=== PATIENT | male | born 1990 | race Caucasian/White ===

== ENCOUNTER 2016-07-01 23:59 | Emergency (ER) | payer OTHER ==
--- NOTE | ~2016-07-01 | CR72 ---
[facility] A Service of [facility] RADIOLOGY TEXT RESULTS PATIENT: LISET HALL LOCATION: [facility] : 91 UNIT #: [id number] AGE: [address]: Yane Goldberg MD SEX: M ORDER DR: [id number] [facility] [address] [place], [place] [address] [id number] MR#: [id number] Acc #: [id number] NAME: LISET HALL : 1990 SEX: M STUDY DATE/TIME: 07/01/2016 22:19 UNIT: [facility] ROOM: STUDY DESCRIPTION: CR Chest Single View Portable Attending Physician: Yane Goldberg M.D. Ordering Physician: Yane Goldberg M.D. Primary Care Physician: No Primary Care Physician MEDICAL IMAGING REPORT This report is preliminary unless electronic signature is present EXAM Portable chest HISTORY Fever, cough, weakness since yesterday. FINDINGS A single AP portable view of the chest shows both lungs to be clear. The heart is normal in size. The mediastinal contour is normal. No significant bone abnormalities are seen. IMPRESSION Normal portable chest. Dictated by... Ruddy Lomeli M.D. THIS IS AN ELECTRONICALLY VERIFIED REPORT Ruddy Lomeli M.D. at 07/02/2016 5:48 AM AMBROSE/phi TD: 07/02/2016 05:09 JOB #: [id number] MEDICAL IMAGING REPORT Page 1 of 1 COPY
[2016-07-01 23:29] LABS: URINE SOURCE CLEAN CATCH
[2016-07-01 23:38] LABS: BASOPHIL% 0.7 % (0-2.5); HEMATOCRIT 48.9 % (38.0-50.0); HEMOGLOBIN 16.6 gm/dL (13.0-16.0); LYMPHOCYTE# 0.6 X10e3 (1.0-3.5); LYMPHOCYTE% 20.4 % (17.0-45.0); MEAN CELL VOLUME 89.5 FL (83-96); MEAN CORPUSCULAR HEMOGLOBIN 30.4 PG (28-34); MEAN PLATELET VOLUME 9.2 FL (6.5-11.5); MONOCYTE# 0.2 X10e3 (0-1.0); MONOCYTE% 6.5 % (3.0-12.0); NEUTROPHIL# 2.2 X10e3 (1.5-7.1); NEUTROPHIL% 72.4 % (40-75); PLATELET COUNT 101 X10e3 (140-420); RED BLOOD COUNT 5.46 X10e (3.90-5.60); URINE APPEARANCE CLEAR; URINE BLOOD NEG (NEG); URINE COLOR DK YELLOW; URINE GLUCOSE NEG (NEG); URINE KETONE TRACE (NEG); URINE LEUKOCYTE ESTERASE TRACE (NEG); URINE NITRATE NEG (NEG); URINE PH 5.5 (5-8); URINE PROTEIN 2+ (NEG); URINE SPECIFIC GRAVITY 1.044 (1.003-1.035); WHITE BLOOD COUNT 3.1 X10e3 (4.0-10.5)
[2016-07-01 23:40] LABS: DIFF IND NO; URINE BACTERIA AUWI NEG (NEGATIVE); URINE SQUAMOUS EPITHELIAL CELL NONE SEEN /[HPF]
[2016-07-01 23:41] LABS: CULTURE INDICATED? NO; URINE BILIRUBIN POS (NEG)
[2016-07-01 23:49] LABS: INFLUENZA A NEG (NEG); INFLUENZA B NEG (NEG)
[2016-07-01 23:58] LABS: BUN/CREATININE RATIO 13.33; CALCIUM SERUM 8.6 mg/dL (8.4-10.2); CREATININE SERUM 0.9 mg/dL (0.6-1.4); GLOM FILT RATE Estimated 118.3 mL/min (>60); POTASSIUM 3.1 mmol/L (3.5-5.1)
[~2016-07-01 23:59] MED LIST: FLEXERIL10 MG PO; VOLTAREN75 MG PO
== END 2016-07-02 02:45 | disposition home or self-care (01) ==
LOC: CED 23:59
PROVIDERS: Emergency Medicine
DX: J11.1 Influenza due to unidentified influenza virus with other respiratory manifestations (principal); E11.9 Type 2 diabetes mellitus without complications; J45.909 Unspecified asthma, uncomplicated; Z88.0 Allergy status to penicillin
CPT/HCPCS: 36415; 71010; 80048; 81003; 85025; 87651; 87804; 94640; 96360; 99284

== ENCOUNTER 2016-07-04 21:16 | Observation (INO) | payer OTHER ==
--- NOTE | ~2016-07-04 | BMI ---
[facility] Nutrition Therapy DATE: 07/05/16 Patient: LISET HALL Physician: THAO Address: [address] Room/Bed: [address] [place] [address], Zip: [place] [address] Admit Date: 07/05/16 Date of : [birth year] Height: 5 11 Weight: 295 134 HIGH BMI NOTE: DX: 26 yo male admitted for fever of unknown origin ANTHROPOMETRICS: Ht: 5'11" Wt: 134.1 kg (295#) BMI: 41.2 DIET: Clear liquids INTERVENTION: 1. Restricted diet RECOMMENDATIONS: 1. Once mediacally feasible, advance diet as tolerated to healthy heart to promote gradual weight loss towards healthy BMI. RD will follow hospital course. Respectfully, Rosalinda Rodríguez, Clam Shucker Adam Sims MS, RD, LD [employer] [facility] cc: client file
--- NOTE | ~2016-07-04 | DS ---
Unit #: [id number] #: [id number] Patient: LISET HALL [id number] [address] [address] [id number] I MR#: [id number] NAME: LISET HALL ROOM: 239 Age: 26 Sex: M Admission Date: 07/05/2016 : 1990 Discharge Date: 07/06/2016 Attending Physician: Israel Peres M.D. Primary Care Physician: No Primary Care Physician DISCHARGE SUMMARY FINAL DIAGNOSES 1. Neutropenia with fever, likely viral illness. 2. Hypokalemia. 3. Tobacco use. CONSULTS Dr. Vences - Hematology. HOSPITAL COURSE 26-year-old male who was admitted for what looked like fever with nausea and vomiting, was found to be neutropenic with white count 2.1. He was seen by hematology who thought that this was probably secondary to viral illness and he will review the slide. He was, however, given Granix 480 mcg subcu x1 with significant improvement of his numbers. White count was up to 9.9 today, on day of discharge. Hemoglobin is 14.1 and hematocrit is 40.7. He feels much better. He was evaluated, suitable and stable for discharge and was started on doxycycline on admission. Will discharge him with a course of doxycycline. DISCHARGE MEDICATIONS Medications on discharge will include doxycycline 100 mg p.o. b.i.d. for five days. He was scheduled for followup with his PCP in the next three to five days. Time spent coordinating discharge is about 25 minutes. Dictated by... Mignon Maldonado/william TD: 07/06/2016 12:34 JOB #: [id number] Unit #: [id number] #: [id number] Patient: LISET HALL DISCHARGE SUMMARY Page 1 of 1 X Sanna Dickens MD DISCHARGE SUMMARY
--- NOTE | ~2016-07-04 | CO ---
Unit #: [id number] #: [id number] Patient: LISET HALL [id number] [address] [address] [id number] I MR#: [id number] NAME: LISET HALL ROOM: 239 Age: 26 Sex: M Admission Date: 07/05/2016 : 1990 Attending Physician: Israel Peres M.D. Primary Care Physician: Primary Care Physician No CONSULTATION REPORT CHIEF COMPLAINT Leukopenia, thrombocytopenia, viral syndrome. HISTORY OF PRESENT ILLNESS This is a 26-year-old male who came to the hospital with a six-day history of fever, chills. He was feeling hot and cold. He also had nausea and vomiting. From hematology point of view, CBC showed WBC 1.7, hemoglobin 15.1, MCV 88, platelets 71. I reviewed the peripheral smear. There are no blasts. Platelet numbers were low. Morphology normal. There are no schistocytes. The patient received one dose of Granix. Today his WBC 9.9, hemoglobin 14.1, and platelets 83. He wants to go home today. His creatinine is 0.8. LFTs are slightly elevated at AST 156, ALT 147, alkaline phosphatase 169, LDL 610. Iron transferrin 12%. He has a chest x-ray from 07/01/2016 which is normal. REVIEW OF SYSTEMS CONSTITUTIONAL: No fever, no chills, no sweats, no weight loss. EYES: No visual symptoms. EARS, NOSE AND THROAT: There is no runny nose or sore throat or difficulty hearing. CARDIOVASCULAR: No chest pain. No shortness of breath. No palpitations. No orthopnea. No PND. RESPIRATORY: No cough. No wheezing. No hemoptysis. GASTROINTESTINAL: No nausea, vomiting, diarrhea, constipation, hematochezia or melena. GENITOURINARY: No urinary frequency, hesitancy or urgency. No blood in the urine. MUSCULOSKELETAL: No muscle or joint pain. NEUROLOGIC: No headache. No numbness or tingling. No weakness. No seizure. PSYCHIATRIC: No anxiety, depression or mood disturbance. ENDOCRINE: No excessive urination or thirst. DERMATOLOGIC: No rash or change in the skin. ALLERGIC/IMMUNOLOGIC: No symptoms. HEMATOLOGIC/LYMPHATIC: Denies any symptoms. PAST MEDICAL HISTORY 1. Asthma. 2. Chronic back pain. PAST SURGICAL HISTORY 1. Adenoids removed. Unit #: [id number] #: [id number] Patient: LISET HALL 2. Tonsillectomy. ALLERGIES Penicillin. SOCIAL HISTORY He has been a smoker of one pack per day for 10 years. Denies alcohol abuse. He cleans apartments. FAMILY HISTORY Mother's side there is some cancer. PHYSICAL EXAMINATION GENERAL: Patient is comfortable. ECOG is 0. The patient is pleasant. VITAL SIGNS: Highest temperature here was 100.3 on 07/01/2016. Today, temperature is afebrile, pulse 62, respiratory rate 18, O2 saturation on room air 98%, blood pressure 140/64. HEENT: Moist mucosa. Pupils equally reactive to light. Extraocular muscles intact. Sclerae anicteric. No obvious bleeding from nasal mucosa or oral mucosa. Scalp normal. Hearing normal. NECK: No JVD. No lymphadenopathy. LYMPHATIC/HEMATOLOGIC: There is no palpable adenopathy in the neck, axilla or inguinal area. CARDIOVASCULAR: S1, S2. Regular rate and rhythm. No S3 or S4. RESPIRATORY: Chest symmetrical, normal. Clear to auscultation bilaterally. No wheezes, no rales, no rhonchi. No dullness to percussion. ABDOMEN/GASTROINTESTINAL: Abdomen is soft, nontender, nondistended. No hepatosplenomegaly. EXTREMITIES: There is no clubbing, no cyanosis, no edema. No varicose veins. NEUROLOGICAL: Patient is alert, awake and oriented x3. Cranial nerves II-XII are intact. Sensory grossly intact. Motor is 4/5 in all four extremities. Gait is normal. Station is normal. Language is normal. Memory is normal. DTRs +2 in all four extremities. MUSCULOSKELETAL: No joint swelling. No bony tenderness. No muscle tenderness. SKIN: No petechiae, no rash, no ecchymosis. PSYCHIATRIC: No anxiety. No delusions or hallucinations. There is no agitation. Eye contact is normal. Affect is appropriate. There is no flight of ideas. DIAGNOSTIC STUDIES LABORATORY: As mentioned. ASSESSMENT AND PLAN This is a 26-year-old male who has the following active issues: 1. Leukopenia. This is most likely due to viral syndrome. I doubt that he has a disease in the bone marrow. I reviewed the peripheral smear. He received 1 dose of Granix. Today, his WBC was 9.9. I will follow the patient in outpatient to make sure there are no abnormalities. 2. Thrombocytopenia. Again, this is due to viral syndrome. Today his platelet count is 83 and he is asymptomatic. I asked him to avoid NSAIDs or Aleve. 3. Viral syndrome. He most likely has upper respiratory symptoms with a viral syndrome. He has dehydration and received IV fluids and pain medication and is feeling better. Unit #: [id number] #: [id number] Patient: LISET HALL DISCUSSION I had an extensive discussion with patient and his mother. I would like to see him next week and follow a couple of things to make sure his CBC returns to normal. I advised him to quit smoking. Dictated by... Brie Barbosa M.D. HADLEY/akshat TD: 07/06/2016 19:15 JOB #: [id number] CONSULTATION REPORT Page 1 of 1 X Brie Barbosa MD CONSULTATION REPORT
--- NOTE | ~2016-07-04 | HP ---
Unit #: [id number] #: [id number] Patient: LISET HALL [id number] [address] [place], [place] [address] [id number] I MR#: [id number] NAME: LISET HALL ROOM: 571 Age: 26 Sex: M Admission Date: 07/05/2016 : 1990 Attending Physician: Israel Peres M.D. Primary Care Physician: No Primary Care Physician HISTORY AND PHYSICAL CHIEF COMPLAINT Fever, sore throat, cough, neutropenia, and thrombocytopenia. HISTORY This pleasant, 26-year-old male with history of asthma was transferred from [facility] emergency department for fever. The patient was in his usual state of health until five days prior to admission when he developed sudden chills and feeling hot and cold. Has a dry cough with shortness of breath and mild bronchospasm. He was seen in this emergency department where a strep. culture was negative, he was noted to be mildly neutropenic with mild thrombocytopenia. He was treated supportively. Over the past three days, he developed recurrent nonbloody nausea and vomiting with some diarrhea, myalgias, decreased urinary output, continued sore throat, fevers, chills, cough, and shortness of breath. He denies recent travel, antibiotics, or exposure to ill people. Although he certainly worked in the [employer] in the past, no recent work in the [employer] or tick bites. He went to [facility] emergency department last evening with a temperature of 100 degrees. Labs are notable for worsening neutropenia and thrombocytopenia. Thus far, chest x-ray is negative, Strep. screen negative, monospot negative, influenza negative, and no pyuria on recent urinalysis. Labs, however, do show modestly elevated LFTs. He was treated with IV fluids, Zofran, Levaquin, and vancomycin and sent to this facility for further workup. PAST MEDICAL HISTORY 1. Asthma. 2. Lumbar radiculopathy. 3. Tonsillectomy. 4. Multiple myringotomy tubes. ALLERGIES To amoxicillin causing severe GI upset. HOME MEDICATIONS Claritin, Neurontin, and ibuprofen; unknown doses. FAMILY HISTORY Hypertension, diabetes, malignancy, and CAD. SOCIAL HISTORY The patient is living with his father. He smokes about a pack per day of tobacco. He seldom drinks alcohol. He has never used IV drugs. Unit #: [id number] #: [id number] Patient: LISET HALL REVIEW OF SYSTEMS Notable for fevers, sweats, chills, cough, shortness of breath, nausea, vomiting, diarrhea, myalgias, decreased urine output, and tobacco use. All other systems were reviewed and are negative. PHYSICAL EXAMINATION GENERAL APPEARANCE: Very pleasant, 26-year-old, obese male who currently is in no acute distress. VITAL SIGNS: Temperature 100, pulse 112, respirations 20, blood pressure 136/88, and O2 saturation 97% on room air. HEENT: Eyes: PERRLA. Extraocular muscles are intact. Pharynx is benign, status post tonsillectomy. NECK: Supple without adenopathy or thyromegaly. CHEST: Clear. CARDIAC: Normal S1 and S2 without S3, S4, or murmur. ABDOMEN: Bowels sounds are present. No hepatosplenomegaly, tenderness, or masses. EXTREMITIES: Without C, C, or E. Pedal pulses are present. LYMPH: No cervical, supraclavicular, or axillary lymphadenopathy. SKIN: Fingernails without splinter hemorrhages. NEUROLOGIC: Patient is awake, alert, and oriented. Cranial nerves are intact. Equal strength throughout. DIAGNOSTIC STUDIES LABORATORY: Hematocrit is 46.6; white blood count 2.1, down from a white blood count of 3.1 three days ago; platelet count 70, down from 101 three days ago; and 54 neutrophils, 12 bands, 24 lymphocytes, 8 monocytes, and 1 eosinophil noted. SMA-12: Potassium 3.2, calcium 8.2, AST 153, ALT 145, and alk phos 141. Normal lactic acid level. Monospot negative. Strep. screen negative. Influenza swabs negative. Urinalysis: Trace leukocyte esterase without significant white or red cells. IMAGING: Chest x-ray: No acute disease. ASSESSMENT 1. Likely viral illness with sore throat, cough, nausea, vomiting, diarrhea, fever, sweats, and chills. Likely mildly elevated LFTs, neutropenia, and thrombocytopenia are likely related to a viral illness as well. Symptoms started abruptly five days ago. Thus far, monospot, strep. screen, chest x-ray, and workup otherwise is negative except for mildly elevated LFTs with thrombocytopenia and neutropenia. 2. Hypokalemia. 3. Asthma with mild exacerbation. PLANS 1. Zofran and Pepcid. 2. Check hepatitis profile and HIV. 3. Albuterol and doxycycline for now, pending above. 4. Blood and stool cultures. 5. SCDs for DVT prophylaxis. 6. Replace potassium and check magnesium. 7. Will ask hematology to also see and recheck labs this morning along with B12 level and retic. count. 8. IV fluids and supportive treatment. Unit #: [id number] #: [id number] Patient: LISET HALL Dictated by Darlin Akbar M.D. AML/pc TD: 07/05/2016 06:34 JOB #: [id number] HISTORY AND PHYSICAL Page 1 of 1 X Darlin Akbar MD X HISTORY AND PHYSICAL
[2016-07-04] MEDS ORDERED: NEURONTIN PO (21:28)
[2016-07-04] MEDS ORDERED: ALBUTEROL17 GM INH (21:28)
[2016-07-04] MEDS ORDERED: CLARITIN10 M3 PO (21:29)
[2016-07-04 22:19] LABS: INFLUENZA A NEG (NEG); INFLUENZA B NEG (NEG)
[2016-07-04 22:56] LABS: BASOPHIL% 1.5 % (0-2.5); EOSINOPHIL% 0.5 % (0.0-7.0); HEMATOCRIT 46.6 % (38.0-50.0); HEMOGLOBIN 16.3 gm/dL (13.0-16.0); LYMPHOCYTE# 0.4 X10e3 (1.0-3.5); LYMPHOCYTE% 21.2 % (17.0-45.0); MEAN CELL VOLUME 87.3 FL (83-96); MEAN CORPUSCULAR HEMOGLOBIN 30.5 PG (28-34); MEAN PLATELET VOLUME 9.9 FL (6.5-11.5); MONOCYTE# 0.2 X10e3 (0-1.0); MONOCYTE% 9.8 % (3.0-12.0); NEUTROPHIL# 1.4 X10e3 (1.5-7.1); PLATELET COUNT 70 X10e3 (140-420); RED BLOOD COUNT 5.34 X10e (3.90-5.60); RED CELL DISTRIBUTION WIDTH 13.4 % (11.0-15.5); WHITE BLOOD COUNT 2.1 X10e3 (4.0-10.5)
[2016-07-04 23:15] LABS: ALBUMIN SERUM 3.6 g/dL (3.5-5.0); BILIRUBIN,TOTAL 1.4 mg/dL (0.2-2.0); CALCIUM SERUM 8.2 mg/dL (8.4-10.2); GLOM FILT RATE Estimated 104.2 mL/min (>60); POTASSIUM 3.2 mmol/L (3.5-5.1); PROTEIN TOTAL SERUM 7.1 g/dL (6.0-8.3)
[2016-07-04 23:18] LABS: DIFF IND YES
[2016-07-04 23:26] LABS: PLATELET ESTIMATE DECREASED (NORMAL)
[2016-07-04 23:27] LABS: RBC NORMAL YES
[2016-07-05 09:33] LABS: ALBUMIN SERUM 3.2 g/dL (3.5-5.0); BILIRUBIN,TOTAL 1.5 mg/dL (0.2-2.0); BUN/CREATININE RATIO 15.55; CREATININE SERUM 0.9 mg/dL (0.6-1.4); GLOM FILT RATE Estimated 118.3 mL/min (>60); MAGNESIUM 1.4 mg/dL (1.6-3.0); POTASSIUM 3.2 mmol/L (3.5-5.1); PROTEIN TOTAL SERUM 6.2 g/dL (6.0-8.3)
[2016-07-05 09:38] LABS: HEMATOCRIT 44.3 % (38.0-50.0); HEMOGLOBIN 15.1 gm/dL (13.0-16.0); MEAN CELL VOLUME 88.7 FL (83-96); MEAN CORPUSCULAR HEMOGLOBIN 30.2 PG (28-34); MEAN CORPUSCULAR HGB CONC 34.1 g/dL (30-36); MEAN PLATELET VOLUME 10.6 FL (6.5-11.5); RED CELL DISTRIBUTION WIDTH 13.4 % (11.0-15.5); RETICULOCYTE 0.5 % (0.5-2.8); WHITE BLOOD COUNT 1.7 X10e3 (4.0-10.5)
[2016-07-06 05:48] LABS: HEMATOCRIT 40.7 % (38.0-50.0); HEMOGLOBIN 14.1 gm/dL (13.0-16.0); MEAN CELL VOLUME 88.3 FL (83-96); MEAN CORPUSCULAR HEMOGLOBIN 30.5 PG (28-34); MEAN CORPUSCULAR HGB CONC 34.6 g/dL (30-36); MEAN PLATELET VOLUME 9.4 FL (6.5-11.5); RED BLOOD COUNT 4.61 X10e (3.90-5.60); RED CELL DISTRIBUTION WIDTH 13.3 % (11.0-15.5)
[2016-07-06 05:49] LABS: WHITE BLOOD COUNT 9.9 X10e3 (4.0-10.5)
[2016-07-06 06:46] LABS: ALBUMIN SERUM 2.9 g/dL (3.5-5.0); BILIRUBIN,TOTAL 1.6 mg/dL (0.2-2.0); BUN/CREATININE RATIO 11.25; CALCIUM SERUM 8.1 mg/dL (8.4-10.2); CREATININE SERUM 0.8 mg/dL (0.6-1.4); GLOM FILT RATE Estimated 124.2 mL/min (>60); POTASSIUM 3.3 mmol/L (3.5-5.1); PROTEIN TOTAL SERUM 5.7 g/dL (6.0-8.3)
[2016-07-06 07:12] LABS: FERRITIN >1500 ng/mL (24-336)
[2016-07-06] MEDS ORDERED: DOXYCYCLINE (15:59)
[2016-07-09 01:02] LABS: HA AB IGM (HEPPAN) Nonreactive (()); HB CORE AB IGM (HEPPAN) Nonreactive (Nonreactive); HB S AG (HEPPAN) Nonreactive (Nonreactive); HEP C AB (HEPPAN) Nonreactive (Nonreactive); HEP C AB SIGNAL TO CUTOFF 0.02 ratio (<1.00)
[2016-07-10 15:25] LABS: HA AB IGM (HEPPAN) Nonreactive (()); HB CORE AB IGM (HEPPAN) Nonreactive (Nonreactive); HB S AG (HEPPAN) Nonreactive (Nonreactive); HEP C AB (HEPPAN) Nonreactive (Nonreactive); HEP C AB SIGNAL TO CUTOFF 0.02 ratio (<1.00)
== END 2016-07-06 16:32 | disposition home or self-care (01) ==
LOC: SED 21:16 → SEDOF 07-05 01:00 → C2A 07-05 01:00 → SED 07-05 01:00 → C5C 07-05 02:14 → SEDOF 07-05 02:14 → C5C 07-05 06:34 → C2A 07-05 07:40 → CEDOF 07-05 16:30 → C5C 07-05 16:30 → C2A 07-06 16:32
PROVIDERS: Internal Medicine; Internal Medicine Hematology; Nurse Practitioner Family
DX: D70.9 Neutropenia, unspecified (principal); R50.9 Fever, unspecified; B34.9 Viral infection, unspecified; E87.6 Hypokalemia; J45.902 Unspecified asthma with status asthmaticus; R79.89 Other specified abnormal findings of blood chemistry; D69.6 Thrombocytopenia, unspecified; F17.200 Nicotine dependence, unspecified, uncomplicated; Z88.0 Allergy status to penicillin; Z82.49 Family history of ischemic heart disease and other diseases of the circulatory system; Z83.3 Family history of diabetes mellitus; Z80.9 Family history of malignant neoplasm, unspecified
CPT/HCPCS: 36415; 80053; 80074; 82607; 82728; 83540; 83550; 83605; 83615; 83735; 85025; 85027; 85044; 86308; 87040; 87045; 87177; 87209; 87328; 87329; 87427; 87493; 87651; 87804; 87806; 87899; 94640; 94760; 96361; 96365; 96367; 96374; 96375; 96376; 99285; G0378; J1447; J1956; J2405; J2543; J3370